=== PATIENT | female | born 1950 | race African-American/Black ===

== ENCOUNTER 2019-04-24 15:59 | Emergency (ER) | payer OTHER ==
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
--- NOTE | 2019-04-24 17:42 | RAD REPORT ---
EXAM DESCRIPTION: Tawanna Single View04/24/2019 5:28 pm CLINICAL HISTORY: Chest pain COMPARISON: 2017 FINDINGS: The lungs appear clear of acute infiltrate. The heart is mildly enlarged IMPRESSION: No acute abnormalities displayed
--- NOTE | 2019-04-24 17:45 | RAD REPORT ---
EXAM DESCRIPTION: RAD - Thoracic Spine Ap/Lat - 04/24/2019 5:28 pm CLINICAL HISTORY: Back pain FINDINGS: Mild kyphosis. Mild to moderate spondylosis Osteoporosis No fracture or dislocation. [id number] scoliosis
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
== END 2019-04-24 18:24 | disposition home or self-care (01) ==
LOC: ER 15:59
DX: S16.1XXA Strain of muscle, fascia and tendon at neck level, initial encounter (principal); M54.5 Low back pain; R07.89 Other chest pain; V43.52XA Car driver injured in collision with other type car in traffic accident, initial encounter; Y93.89 Activity, other specified; Y92.410 Unspecified street and highway as the place of occurrence of the external cause; Z88.2 Allergy status to sulfonamides; I10 Essential (primary) hypertension
CPT/HCPCS: 70450; 71045; 72070; 72125; 99284

== ENCOUNTER 2020-02-09 13:46 | Emergency (ER) | payer OTHER ==
[2020-02-09 14:51] LABS: Absolute Lymphocytes (CBC) 1.7 K/uL (0.7-4.9); Basophils % 1.6 % (0-1.3); Hematocrit 40.3 % (36.0-45.0); Lymphocytes % 30.1 % (15.3-44.8); MPV 8.2 fL (7.6-11.3); RBC Red Blood Cell Count 4.74 M/uL (3.86-4.86)
[2020-02-09 14:53] LABS: Protime INR 1.12
--- NOTE | 2020-02-09 15:03 | RAD REPORT ---
EXAM DESCRIPTION: Tawanna Single View02/09/2020 2:27 pm CLINICAL HISTORY: Chest pain COMPARISON: 2018 FINDINGS: The lungs appear clear of acute infiltrate. The heart is normal size IMPRESSION: No acute abnormalities displayed
[2020-02-09 15:04] LABS: ALT/SGPT 24 U/L (12-78); AST/SGOT 13 U/L (15-37); Albumin 3.8 g/dL (3.4-5.0); Alkaline Phosphatase 62 U/L (45-117); BUN Blood Urea Nitrogen 7 mg/dL (7-18); Bicarbonate 27 mmol/L (21-32); Bilirubin Direct < 0.1 mg/dL (0-0.2); Bilirubin Total 0.4 mg/dL (0.2-1.0); Glucose Level 101 mg/dL (74-106); Magnesium 2.5 mg/dL (1.8-2.4); NT PRO-BNP 24 pg/mL (<125); Potassium 4.1 mmol/L (3.5-5.1); Protein, Total 7.8 g/dL (6.4-8.2); Sodium Level 138 mmol/L (136-145); Troponin (Emerg Dept Use Only) < 0.02 ng/mL (0.0-0.045)
--- NOTE | 2020-02-09 15:32 | EDPHYS ---
Physician Documentation [facility] Name: Karol Samuels Age: 69 yrs Sex: Female : 1950 Arrival Date: 02/09/2020 Time: 13:51 Bed 6 Private MD: ED Physician Josue Gay HPI: 02/08 15:16 This 69 yrs old Black Female presents to ER via Wheelchair with complaints of Chest kdr Pain, Numbness Of Arm. 15:16 The patient or guardian reports chest pain that is located primarily in the anterior kdr chest wall, right. Onset: yesterday. The pain does not radiate. Associated signs and symptoms: The patient has no apparent associated signs or symptoms. The chest pain is described as sharp, "Notching" pain. Historical: - Allergies: 14:03 Sulfa (Sulfonamide Antibiotics); ll1 14:03 Lisinopril; ll1 - PMHx: 14:03 Hypertension; ll1 - PSHx: 14:03 Hysterectomy; shoulder sx; ll1 - Immunization history:: Flu vaccine is not up to date. - Social history:: Smoking status: Patient denies any tobacco usage or history of. Patient/guardian denies using alcohol, street drugs. ROS: 15:55 Constitutional: Negative for fever, chills, and weight loss, Eyes: Negative for injury, kdr pain, redness, and discharge, Neck: Negative for injury, pain, and swelling, Respiratory: Negative for shortness of breath, cough, wheezing, and pleuritic chest pain, Abdomen/GI: Negative for abdominal pain, nausea, vomiting, diarrhea, and constipation, Back: Negative for injury and pain, : Negative for injury, bleeding, discharge, and swelling, MS/Extremity: Negative for injury and deformity, Skin: Negative for injury, rash, and discoloration, Neuro: Negative for headache, weakness, numbness, tingling, and seizure activity. Psych: Negative for depression, anxiety, suicide ideation, homicidal ideation, and hallucinations, Allergy/Immunology: Negative for hives, rash, and allergies, Endocrine: Negative for neck swelling, polydipsia, polyuria, polyphagia, and marked weight changes, Hematologic/Lymphatic: Negative for swollen nodes, abnormal bleeding, and unusual bruising. 15:55 Cardiovascular: Positive for chest pain, of the right breast. Exam: 14:42 ECG was reviewed by the Attending Physician. kdr 15:55 Constitutional: This is a well developed, well nourished patient who is awake, alert, kdr and in no acute distress. Head/Face: Normocephalic, atraumatic. Eyes: Pupils equal round and reactive to light, extra-ocular motions intact. Lids and lashes normal. Conjunctiva and sclera are non-icteric and not injected. Cornea within normal limits. Periorbital areas with no swelling, redness, or edema. Neck: Trachea midline, no thyromegaly or masses palpated, and no cervical lymphadenopathy. Supple, full range of motion without nuchal rigidity, or vertebral point tenderness. No Meningismus. Chest/axilla: Normal chest wall appearance and motion. Nontender with no deformity. No lesions are appreciated. Cardiovascular: Regular rate and rhythm with a normal S1 and S2. No gallops, murmurs, or rubs. Normal PMI, no JVD. No pulse deficits. Respiratory: Lungs have equal breath sounds bilaterally, clear to auscultation and percussion. No rales, rhonchi or wheezes noted. No increased work of breathing, no retractions or nasal flaring. Abdomen/GI: Soft, non-tender, with normal bowel sounds. No distension or tympany. No guarding or rebound. No evidence of tenderness throughout. Back: No spinal tenderness. No costovertebral tenderness. Full range of motion. Skin: Warm, dry with normal turgor. Normal color with no rashes, no lesions, and no evidence of cellulitis. MS/ Extremity: Pulses equal, no cyanosis. Neurovascular intact. Full, normal range of motion. Neuro: Awake and alert, GCS 15, oriented to person, place, time, and situation. Cranial nerves II-XII grossly intact. Motor strength 5/5 in all extremities. Sensory grossly intact. Cerebellar exam normal. Normal gait. Psych: Awake, alert, with orientation to person, place and time. Behavior, mood, and affect are within normal limits. 15:55 Chest/axilla: Inspection: normal, Palpation: tenderness, that is mild, of the right breast. Vital Signs: 14:00 BP 151 / 85; Pulse 82; Resp 17; Temp 98.7; Pulse Ox 100% ; Pain 5/10; ll1 14:45 BP 137 / 69; Pulse 64; Resp 18; Pulse Ox 100% on R/A; Pain 5/10; em MDM: 15:31 Patient medically screened. kdr 15:55 Data reviewed: vital signs, nurses notes, lab test result(s), radiologic studies. kdr Counseling: I had a detailed discussion with the patient and/or guardian regarding: the historical points, exam findings, and any diagnostic results supporting the discharge/admit diagnosis, lab results, radiology results, the need for outpatient follow up. 02/08 13:51 Order name: Basic Metabolic Panel; Complete Time: 15:15 [facility] 02/08 13:51 Order name: CBC with Diff; Complete Time: 15:15 [facility] 02/08 13:51 Order name: LFT's; Complete Time: 15:15 [facility] 02/08 13:51 Order name: Magnesium; Complete Time: 15:15 [facility] 02/08 13:51 Order name: NT PRO-BNP; Complete Time: 15:15 [facility] 02/08 13:51 Order name: PT-INR; Complete Time: 15:15 [facility] 02/08 13:51 Order name: Troponin (emerg Dept Use Only); Complete Time: 15:15 [facility] 02/08 13:51 Order name: XRAY Chest (1 view); Complete Time: 15:15 [facility] 02/08 13:51 Order name: EKG; Complete Time: 13:52 [facility] 02/08 13:51 Order name: Cardiac monitoring; Complete Time: 14:37 [facility] 02/08 13:51 Order name: EKG - Nurse/Tech; Complete Time: 14:37 [facility] 02/08 13:51 Order name: IV Saline Lock; Complete Time: 14:37 [facility] 02/08 13:51 Order name: Labs collected and sent; Complete Time: 14:22 [facility] 02/08 13:51 Order name: O2 Per Protocol; Complete Time: 14:22 [facility] 02/08 13:51 Order name: O2 Sat Monitoring; Complete Time: 14:22 kdr EC:42 Rate is 71 beats/min. Rhythm is regular, Normal Sinus Rhythm with No ectopy. QRS [place] kdr is Normal. ME interval is normal. QRS interval is normal. QT interval is normal. No Q waves. Clinical impression: Normal ECG. Administered Medications: No medications were administered Disposition: 02/09/20 15:31 Discharged to Home. Impression: Other chest pain. - Condition is Fair. - Discharge Instructions: Nonspecific Chest Pain, Chest Wall Pain. - Prescriptions for Ibuprofen 600 mg Oral Tablet - take 1 tablet by ORAL route every 6 hours As needed take with food; 30 tablet. - Medication Reconciliation Form, Thank You Letter form. - Follow up: Private Physician; When: 2 - 3 days; Reason: If symptoms return, Further diagnostic work-up, Recheck today's complaints, Continuance of care, Re-evaluation by your physician. - Problem is new. - Symptoms have improved. Signatures: Dispatcher [employer] EDJosue Olmos MD MD kdr Kenn Saenz RN RN em Shayy Hughes RN RN ll1 Corrections: (The following items were deleted from the chart) 15:40 15:31 02/09/2020 15:31 Discharged to Home. Impression: Other chest pain. Condition is em Fair. Forms are Medication Reconciliation Form, Thank You Letter, Antibiotic Education, Prescription Opioid Use. Follow up: Private Physician; When: 2 - 3 days; Reason: If symptoms return, Further diagnostic work-up, Recheck today's complaints, Continuance of care, Re-evaluation by your physician. Problem is new. Symptoms have improved. kdr
--- NOTE | 2020-02-09 15:32 | ER ---
Nurse's Notes [facility] Name: Karol Samuels Age: 69 yrs Sex: Female : 1950 Arrival Date: 02/09/2020 Time: 13:51 Bed 6 Private MD: Diagnosis: Other chest pain Presentation: 02/08 14:00 Chief complaint: Patient states: Sharp intermittent CP since yesterday. R arm feels ll1 tingling. No SOB or cough. Has recovered from covid virus. Coronavirus screen: Client denies travel out of the [place] in the last 14 days. The client reports previous COVID testing was negative. Had covid Jan.20, has since [facility] patient. Ebola Screen: Patient denies travel to an Ebola-affected area in the 21 days before illness onset. Initial Sepsis Screen: Does the patient meet any 2 criteria? No. Patient's initial sepsis screen is negative. Risk Assessment: Do you want to hurt yourself or someone else? Patient reports no desire to harm self or others. Onset of symptoms was February 08, 2020. 14:00 Method Of Arrival: Wheelchair ll1 14:00 Acuity: SAIRA 3 ll1 Historical: - Allergies: 14:03 Sulfa (Sulfonamide Antibiotics); ll1 14:03 Lisinopril; ll1 - PMHx: 14:03 Hypertension; ll1 - PSHx: 14:03 Hysterectomy; shoulder sx; ll1 - Immunization history:: Flu vaccine is not up to date. - Social history:: Smoking status: Patient denies any tobacco usage or history of. Patient/guardian denies using alcohol, street drugs. Screenin:15 Abuse screen: Denies threats or abuse. Nutritional screening: No deficits noted. em Tuberculosis screening: No symptoms or risk factors identified. Fall Risk None identified. Assessment: 14:15 General: Appears in no apparent distress. comfortable, Behavior is calm, cooperative, em appropriate for age. Pain: Complains of pain in mid-sternal area Pain does not radiate. Pain began 1 day ago. Neuro: Level of Consciousness is awake, alert, obeys commands, Oriented to person, place, time, situation, Appropriate for age. Cardiovascular: Capillary refill < 3 seconds Patient's skin is warm and dry. Rhythm is sinus rhythm. Respiratory: Airway is patent Respiratory effort is even, unlabored, Respiratory pattern is regular, symmetrical, Denies cough, pain with respiration. GI: Abdomen is flat, Patient currently denies nausea, vomiting. Derm: Skin is intact, is fragile, is thin, Skin is pink, warm \T\ dry. Musculoskeletal: Capillary refill < 3 seconds, Range of motion: intact in all extremities. 15:30 Reassessment: Patient appears in no apparent distress at this time. Patient and/or em family updated on plan of care and expected duration. Pain level reassessed. Patient is alert, oriented x 3, equal unlabored respirations, skin warm/dry/pink. Vital Signs: 14:00 BP 151 / 85; Pulse 82; Resp 17; Temp 98.7; Pulse Ox 100% ; Pain 5/10; ll1 14:45 BP 137 / 69; Pulse 64; Resp 18; Pulse Ox 100% on R/A; Pain 5/10; em ED Course: 13:51 Patient arrived in ED. mr 13:51 Josue Gay MD is Attending Physician. kdr 14:02 Triage completed. ll1 14:03 Arm band placed on Patient placed in an exam room, on a stretcher. ll1 14:15 Patient has correct armband on for positive identification. Placed in gown. Bed in low em position. Call light in reach. Side rails up X2. 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 Pulse ox on. NIBP on. 14:19 EKG done, by ED staff, reviewed by Josue Gay MD. em 14:22 Kenn Saenz, RN is Primary Nurse. em 14:27 XRAY Chest (1 view) In Process Unspecified. EDMS 14:30 Initial lab(s) drawn, by ct, sent to lab. Inserted saline lock: 20 gauge in right em antecubital area, using aseptic technique. Blood collected. 14:30 Patient maintains SpO2 saturation greater than 95% on room air. em 15:39 No provider procedures requiring assistance completed. IV discontinued, intact, em bleeding controlled, No redness/swelling at site. Pressure dressing applied. Administered Medications: No medications were administered Outcome: 15:31 Discharge ordered by . kdr 15:39 Discharged to home ambulatory. em 15:39 Condition: good 15:39 Discharge instructions given to patient, Instructed on discharge instructions, follow up and referral plans. medication usage, Demonstrated understanding of instructions, follow-up care, medications, Prescriptions given X 1. 15:40 Patient left the ED. em Signatures: Dispatcher [employer] EDJosue Olmos MD MD kdr Rivera Temi Kenn Winkler RN RN em Shayy Hughes RN RN ll1
--- NOTE | 2020-02-10 10:46 | EKG ---
Test Date: 2020-02-09 Test Time: 14:19:28 Locomotive Operator: JAIRON MEASUREMENT RESULTS: Intervals: Rate: 71 GA: 134 QRSD: 90 QT: 384 QTc: 417 Mccarley: P: 63 GA: 134 QRS: 74 T: 51 INTERPRETIVE STATEMENTS: Normal sinus rhythm Normal ECG Compared to ECG 07/06/2016 01:18:25 Sinus bradycardia no longer present T-wave abnormality no longer present Electronically Signed On 02-10-20 10:43:35 CDT by Fran Simpson
[2020-02-14 01:01] VITALS: TEMP 98.7; O2SAT 100
[2020-02-14 01:02] VITALS: BP 137/69
== END 2020-02-09 15:40 | disposition home or self-care (01) ==
LOC: ER 13:46
DX: R07.89 Other chest pain (principal); I10 Essential (primary) hypertension; Z88.2 Allergy status to sulfonamides; Z88.8 Allergy status to other drugs, medicaments and biological substances
CPT/HCPCS: 36415; 71045; 80048; 80076; 83735; 83880; 84484; 85025; 85610; 93005; 99285

== ENCOUNTER 2020-04-18 21:48 | Emergency (ER) | payer OTHER, SELFPAY ==
--- OUTSIDE RECORDS SUMMARY | 2020-04-18 21:50 | XMS REPORT ---
:1950 Author Organization [facility] Address [address], [place] [place] [address] Care Team Providers Name Role Phone Jay Unavailable [phone] PROBLEMS Type Condition ICD9-CM UHH86-SS Onset Condition SNOMED Code Notes Code Code Dates Status Problem Essential I10 Active 05232432 hypertension Problem Allergic J30.9 Active 84450511 rhinitis, unspecified seasonality, unspecified trigger Problem Obesity (BMI E66.9 Active [id number] 30.0-34.9) Problem Otalgia, H92.03 Active 206686843 bilateral Problem Low TSH level R79.89 Active 843119075 Problem Dizziness R42 Active 813496515 With lighthe adednes s. Problem History of asthma Z87.09 Active 385710346 Problem Seasonal allergic J30.2 Active 654822863 rhinitis Problem Hypomagnesemia E83.42 Active 049656727 Problem Prediabetes R73.03 Active 261711162 ALLERGIES Allergen (clinical Drug/Non Drug Reaction Allergy Type Onset Date S tatus drug ingredient) Allergy documented on EMR Sulfa rash Non Drug Allergy Active ENCOUNTERS from 1950 to 2020-03-17 Encounter Location Date Provider Diagnosis [facility] [address] [facility] [place] Feb, Socodiana Thompson Dizzin ess R42 ; [address] [place], Prediabete s R73.03 ; [place] [address] Otalgia, bilat eral H92.03 ; Allerg ic rhinitis, unspecified seasonality, unspecified tri gger J30.9 and Essen tial hypertension I1 0 IMMUNIZATIONS No Information SOCIAL HISTORY Tobacco Use: Social History Observation Description Date Details (start date - stop date) Never Smoker Sex Assigned At : Social History Observation Description Sex Assigned At Unknown Alcohol Screen Question Answer Notes Did you have a drink containing alcohol in the past year? No Points 0 Interpretation Negative Tobacco Use/Smoking Question Answer Notes Are you a never smoker REASON FOR REFERRAL No Information VITAL SIGNS Height 64 in Feb, Weight 167 lbs Feb, Temperature 98.2 degrees Fahrenheit Feb, BMI 28.66 kg/m2 Feb, Oximetry 97 % Feb, Respiratory Rate 16 /min Feb, Blood pressure systolic 138 mm Hg Feb, Blood pressure diastolic 83 mm Hg Feb, MEDICATIONS Medication SIG (Take, Route, Frequency, Start Date End Date Status Duration) Amlodipine Besylate 10 MG 1 tablet Orally Once daily Active for 90 days Vitamin D3 125 MCG (5000 UT) as directed Orally Active Vitamin B12 100 MCG as directed Orally Ac tive Vitamin C 250 MG 1 tablet Orally Once a day Active PROCEDURES No Information RESULTS Component Value Reference Range HEMOGLOBIN A1C Reviewed date:03/16/2020 21:59:52 Interpretation: Performing Lab: A1C 5.9% REASON FOR VISIT Feeling slightly lightheaded; #[phone] MEDICAL (GENERAL) HISTORY Type Description Date Medical History Essential hypertension Medical History Seasonal allergic rhinitis Medical History History of asthma Surgical History tubal ligation Surgical History Hysterectomy Surgical History surgery on back Goals Section No Information Health Concerns No Information MEDICAL EQUIPMENT No Information MENTAL STATUS No Information FUNCTIONAL STATUS No Information ASSESSMENTS Encounter Date Diagnosis Notes Feb, Allergic rhinitis, unspecified seasonali ty, unspecified trigger (ICD-10 - J30.9) Feb, Otalgia, bilateral (ICD-10 - H92.03) Feb, Essential hypertension (ICD-10 - I10) Feb, Prediabetes (ICD-10 - R73.03) Feb, Dizziness (ICD-10 - R42) With lightheade dness. PLAN OF TREATMENT Medication Medication Name Sig Start Date Stop Date Amlodipine Besylate 10 MG 1 tablet Orally Once daily for 90 days Treatment Notes Assessment Notes Clinical Notes Dizziness Aware; will monitor Prediabetes Watch intake of sweets/excess starches Otalgia, bilateral Aware; Tylenol OTC as directed prn pain Allergic rhinitis, unspecified Continue Flonase Nasal [place] once seasonality, unspecified trigger daily + be consistent with Nasal Saline [place] 2-4x per day Essential hypertension Tolerating Amlodipine at increased dose of 10 mg once daily; taking increased dose as of 02/04/2020; refill at 10 mg as listed above. Nurse to do orthostatic BPs on patient before discharge - results as listed above under "Vital Signs". Instructed to bring BP log sheets to her next visit; no additional BP log sheets needed Next Appt Details Keep appt. on 04/28/2020 as already sche duled; as well as f/u prn. Reason: Provider Name:Soco Thompson, 2020-04-18 1 01:20:00 PM, [address], [address], [place], [address], Provider Name:Soco Thompson, 2020-08-17 2 08:00:00 AM, [address], [address], [place], [address], Provider Name:Soco Thompson 2020-08-17 9 09:40:00 AM, [address], [address], [place], [address], Insurance Providers Payer Name Payer Payer Insured Patient Coverage Coverage Address Phone Name Relationship to Start Date End Date Insured [employer] [id number] [facility] [id number]
[2020-04-18 22:31] LABS: Urine Blood NEGATIVE (NEG); Urine Glucose NEGATIVE (NEG); Urine Protein NEGATIVE (NEG); Urine Specific Gravity <1.005 (1.005-1.030); Urine pH 6.5 (5.0-7.0)
[2020-04-18 22:33] LABS: Absolute Lymphocytes (CBC) 2.8 K/uL (0.7-4.9); Basophils % 1.2 % (0-1.3); Lymphocytes % 34.1 % (15.3-44.8); MPV 8.2 fL (7.6-11.3); RBC Red Blood Cell Count 4.68 M/uL (3.86-4.86)
[2020-04-18 22:37] LABS: Protime INR 1.11
[2020-04-18 22:59] LABS: ALT/SGPT 18 U/L (12-78); AST/SGOT 15 U/L (15-37); Albumin 3.9 g/dL (3.4-5.0); Alkaline Phosphatase 69 U/L (45-117); BUN Blood Urea Nitrogen 7 mg/dL (7-18); Bicarbonate 28 mmol/L (21-32); Bilirubin Direct 0.3 mg/dL (0-0.2); Bilirubin Total 0.4 mg/dL (0.2-1.0); Glucose Level 95 mg/dL (74-106); Magnesium 2.4 mg/dL (1.8-2.4); NT PRO-BNP 32 pg/mL (<125); Potassium 3.6 mmol/L (3.5-5.1); Sodium Level 139 mmol/L (136-145); Thyroid Stimulating Hormone 0.461 uIU/mL (0.360-3.740); Troponin (Emerg Dept Use Only) < 0.02 ng/mL (0.0-0.045)
--- NOTE | 2020-04-19 00:10 | EDPHYS ---
Physician Documentation [facility] Name: Karol Samuels Age: 69 yrs Sex: Female : 1950 Arrival Date: 04/18/2020 Time: 21:48 Bed 5 Private MD: Soco Thompson ED Physician Chetan Knox HPI: 04/18 22:38 This 69 yrs old Black Female presents to ER via Ambulatory with complaints of High mh7 Blood Pressure, racing heart. 22:38 The patient presents with a history of heart racing. Context: The symptoms occur at mh7 rest. Onset: The symptoms/episode began/occurred today. Duration: The patient or guardian reports a single episode, that is now resolved. Modifying factors: The symptoms are aggravated by nothing. The symptoms are alleviated by nothing. 22:39 Associated signs and symptoms: Pertinent negatives: anxiety, chest pain, cough, fever, mh7 lightheadedness, nausea, SOB, syncope, near-syncope, unusual stressors, vertigo, vomiting. Severity of symptoms: At their worst the symptoms were moderate today, in the emergency department the symptoms have resolved and did so while in waiting room. Historical: - Allergies: 22:03 Sulfa (Sulfonamide Antibiotics); jd3 - Home Meds: 22:03 amlodipine oral [Active]; jd3 - PMHx: 22:03 Hypertension; jd3 - PSHx: 22:03 Hysterectomy; shoulder sx; jd3 - Immunization history:: Adult Immunizations up to date. - Social history:: Smoking status: Patient denies any tobacco usage or history of. ROS: 22:39 Constitutional: Negative for fever, chills, and weight loss, Eyes: Negative for injury, mh7 pain, redness, and discharge, ENT: Negative for injury, pain, and discharge, Neck: Negative for injury, pain, and swelling, Respiratory: Negative for shortness of breath, cough, wheezing, and pleuritic chest pain, Abdomen/GI: Negative for abdominal pain, nausea, vomiting, diarrhea, and constipation, Back: Negative for injury and pain, : Negative for injury, bleeding, discharge, and swelling, MS/Extremity: Negative for injury and deformity, Skin: Negative for injury, rash, and discoloration, Neuro: Negative for headache, weakness, numbness, tingling, and seizure, Psych: Negative for depression, anxiety, suicide ideation, homicidal ideation, and hallucinations, Allergy/Immunology: Negative for hives, rash, and allergies, Endocrine: Negative for neck swelling, polydipsia, polyuria, polyphagia, and marked weight changes, Hematologic/Lymphatic: Negative for swollen nodes, abnormal bleeding, and unusual bruising. Exam: 22:39 Constitutional: This is a well developed, well nourished patient who is awake, alert, mh7 and in no acute distress. Head/Face: Normocephalic, atraumatic. Eyes: Pupils equal round and reactive to light, extra-ocular motions intact. Lids and lashes normal. Conjunctiva and sclera are non-icteric and not injected. Cornea within normal limits. Periorbital areas with no swelling, redness, or edema. Neck: Trachea midline, no thyromegaly or masses palpated, and no cervical lymphadenopathy. Supple, full range of motion without nuchal rigidity, or vertebral point tenderness. No Meningismus. Chest/axilla: Normal chest wall appearance and motion. Nontender with no deformity. No lesions are appreciated. Cardiovascular: Regular rate and rhythm with a normal S1 and S2. No gallops, murmurs, or rubs. Normal PMI, no JVD. No pulse deficits. Respiratory: Lungs have equal breath sounds bilaterally, clear to auscultation and percussion. No rales, rhonchi or wheezes noted. No increased work of breathing, no retractions or nasal flaring. Abdomen/GI: Soft, non-tender, with normal bowel sounds. No distension or tympany. No guarding or rebound. No evidence of tenderness throughout. Back: No spinal tenderness. No costovertebral tenderness. Full range of motion. Skin: Warm, dry with normal turgor. Normal color with no rashes, no lesions, and no evidence of cellulitis. MS/ Extremity: Pulses equal, no cyanosis. Neurovascular intact. Full, normal range of motion. Neuro: Awake and alert, GCS 15, oriented to person, place, time, and situation. Cranial nerves II-XII grossly intact. Motor strength 5/5 in all extremities. Sensory grossly intact. Cerebellar exam normal. Normal gait. Psych: Awake, alert, with orientation to person, place and time. Behavior, mood, and affect are within normal limits. Vital Signs: 22:03 BP 154 / 84; Pulse 70; Resp 16 S; Temp 98.3(O); Pulse Ox 100% on R/A; Weight 71.21 kg jd3 (R); Height 5 ft. 6 in. (167.64 cm) (R); Pain 0/10; 22:30 BP 140 / 74; Pulse 62; Resp 18; Pulse Ox 99% ; ea 23:41 BP 135 / 72; Pulse 60; Resp 20; Pulse Ox 100% on R/A; ll2 22:03 Body Mass Index 25.34 (71.21 kg, 167.64 cm) jd3 MDM: 22:16 Patient medically screened. [facility] 04/19 00:06 Differential diagnosis: arrythmia, dehydration, stress disorder, Palpitations. Data [facility] reviewed: vital signs, nurses notes, lab test result(s), cardiac enzymes, CBC, electrolytes, urinalysis, EKG, radiologic studies, plain films. Data interpreted: Pulse oximetry: on room air is 100 %. Interpretation: normal. Counseling: I had a detailed discussion with the patient and/or guardian regarding: the historical points, exam findings, and any diagnostic results supporting the discharge/admit diagnosis, lab results, radiology results, the need for outpatient follow up, to return to the emergency department if symptoms worsen or persist or if there are any questions or concerns that arise at home. Response to treatment: the patient's symptoms have resolved after treatment, the patient's blood pressure is in an acceptable range, mental status has returned to baseline, the patient no longer shows bradycardia, the patient is not short of breath, the patient is not tachycardic, the patient's pain is gone, the patient's temperature has normalized, the patient is now symptom free, patient is well hydrated. 04/18 22:16 Order name: Basic Metabolic Panel; Complete Time: 23:13 [facility] 04/18 22:16 Order name: CBC with Diff; Complete Time: 23:13 [facility] 04/18 22:16 Order name: LFT's; Complete Time: 23:13 [facility] 04/18 22:16 Order name: Magnesium; Complete Time: 23:13 [facility] 04/18 22:16 Order name: NT PRO-BNP; Complete Time: 23:13 [facility] 04/18 22:16 Order name: PT-INR; Complete Time: 23:13 7 04/18 22:16 Order name: Troponin (emerg Dept Use Only); Complete Time: 23:13 [facility] 04/18 22:16 Order name: XRAY Chest (1 view) [facility] 04/18 22:16 Order name: EKG; Complete Time: 22:17 7 04/18 22:16 Order name: Cardiac monitoring; Complete Time: 22:20 [facility] 04/18 22:16 Order name: EKG - Nurse/Tech; Complete Time: 22:20 [facility] 04/18 22:16 Order name: TSH; Complete Time: 23:13 7 04/18 22:28 Order name: Urine Dipstick--Ancillary (enter results); Complete Time: 23:13 [facility] 04/18 23:16 Order name: D-Dimer; Complete Time: 00:01 [facility] 04/18 22:16 Order name: IV Saline Lock; Complete Time: 22:20 [facility] 04/18 22:16 Order name: Labs collected and sent; Complete Time: 22:20 [facility] 04/18 22:16 Order name: O2 Per Protocol; Complete Time: 22:20 [facility] 04/18 22:16 Order name: O2 Sat Monitoring; Complete Time: 22:20 [facility] 04/18 22:16 Order name: Urine Dipstick-Ancillary (obtain specimen); Complete Time: 22:19 mh7 Administered Medications: No medications were administered Disposition: 04/19/20 00:09 Discharged to Home. Impression: Palpitations, Hypertension. - Condition is Stable. - Discharge Instructions: Hypertension, [id number], Palpitations, [id number]-[id number]. - Medication Reconciliation Form, Thank You Letter, Antibiotic Education, Prescription Opioid Use form. - Follow up: Private Physician; When: 1 - 2 days; Reason: Worsening of condition, Recheck today's complaints, Continuance of care, Re-evaluation by your physician. - Problem is new. - Symptoms are resolved. Signatures: Dispatcher [employer] Zhao Brito RN RN jd3 Unique Ford RN RN ll2 Chetan Knox MD MD 7 Corrections: (The following items were deleted from the chart) 00:25 00:09 04/19/2020 00:09 Discharged to Home. Impression: Palpitations; Hypertension. ll2 Condition is Stable. Forms are Medication Reconciliation Form, Thank You Letter, Antibiotic Education, Prescription Opioid Use. Follow up: Private Physician; When: 1 - 2 days; Reason: Worsening of condition, Recheck today's complaints, Continuance of care, Re-evaluation by your physician. Problem is new. Symptoms are resolved. mh7
--- NOTE | 2020-04-19 00:10 | ER ---
Nurse's Notes [facility] Name: Karol Samuels Age: 69 yrs Sex: Female : 1950 Arrival Date: 04/18/2020 Time: 21:48 Bed 5 Private MD: Soco Thompson Diagnosis: Palpitations;Hypertension Presentation: 04/18 22:00 Chief complaint: Patient states: "I felt my heart racing at home. It is a little better jd3 now, but I am still having higher blood pressure and just uncomfortable.". Coronavirus screen: At this time, the client does not indicate any symptoms associated with coronavirus-19. Ebola Screen: Patient negative for fever greater than or equal to 101.5 degrees Fahrenheit, and additional compatible Ebola Virus Disease symptoms. Initial Sepsis Screen: Does the patient meet any 2 criteria? No. Patient's initial sepsis screen is negative. Does the patient have a suspected source of infection? No. Patient's initial sepsis screen is negative. Risk Assessment: Do you want to hurt yourself or someone else? Patient reports no desire to harm self or others. Onset of symptoms was April 18, 2020. 22:00 Method Of Arrival: Ambulatory jd3 22:00 Acuity: SAIRA 3 jd3 Historical: - Allergies: 22:03 Sulfa (Sulfonamide Antibiotics); jd3 - Home Meds: 22:03 amlodipine oral [Active]; jd3 - PMHx: 22:03 Hypertension; jd3 - PSHx: 22:03 Hysterectomy; shoulder sx; jd3 - Immunization history:: Adult Immunizations up to date. - Social history:: Smoking status: Patient denies any tobacco usage or history of. Screenin:05 Abuse screen: Denies threats or abuse. Nutritional screening: No deficits noted. ll2 Tuberculosis screening: No symptoms or risk factors identified. Fall Risk None identified. Assessment: 22:04 General: Appears in no apparent distress. Behavior is calm, cooperative, appropriate ll2 for age. Pain: Denies pain. Neuro: Level of Consciousness is awake, alert, obeys commands, Oriented to person, place, time, situation. Cardiovascular: Capillary refill < 3 seconds Patient's skin is warm and dry. Respiratory: Airway is patent Respiratory effort is even, unlabored, Respiratory pattern is regular, symmetrical. GI: No signs and/or symptoms were reported involving the gastrointestinal system. : No signs and/or symptoms were reported regarding the genitourinary system. EENT: No signs and/or symptoms were reported regarding the EENT system. Derm: Skin is intact, is healthy with good turgor, Skin is dry, Skin is pink, warm \\T\\ dry. Skin temperature is warm. Musculoskeletal: Circulation, motion, and sensation intact. Range of motion: intact in all extremities. 22:15 Reassessment: Patient and/or family updated on plan of care and expected duration. Pain ll2 level reassessed. Patient is alert, oriented x 3, equal unlabored respirations, skin warm/dry/pink. 23:40 Reassessment: Patient and/or family updated on plan of care and expected duration. Pain ll2 level reassessed. Patient is alert, oriented x 3, equal unlabored respirations, skin warm/dry/pink. 04/19 00:08 Reassessment: Patient and/or family updated on plan of care and expected duration. Pain ll2 level reassessed. Patient is alert, oriented x 3, equal unlabored respirations, skin warm/dry/pink. Vital Signs: 04/18 22:03 BP 154 / 84; Pulse 70; Resp 16 S; Temp 98.3(O); Pulse Ox 100% on R/A; Weight 71.21 kg jd3 (R); Height 5 ft. 6 in. (167.64 cm) (R); Pain 0/10; 22:30 BP 140 / 74; Pulse 62; Resp 18; Pulse Ox 99% ; ea 23:41 BP 135 / 72; Pulse 60; Resp 20; Pulse Ox 100% on R/A; ll2 22:03 Body Mass Index 25.34 (71.21 kg, 167.64 cm) jd3 ED Course: 21:48 Patient arrived in ED. am2 21:48 Soco Thompson MD is Private Physician. am2 21:53 Chetan Knox MD is Attending Physician. mh7 21:54 Unique Ford, BEBA is Primary Nurse. ll2 22:01 Triage completed. jd3 22:04 Arm band placed on. EKG completed in triage. Results shown to MD. jd3 22:05 Patient has correct armband on for positive identification. Call light in reach. Side ll2 rails up X 1. telemetry monitor on. Pulse ox on. NIBP on. 22:05 EKG done, by ED staff, reviewed by Chetan Knox MD. ll2 22:08 Inserted saline lock: 20 gauge in right antecubital area, using aseptic technique. ds4 Blood collected. 22:46 XRAY Chest (1 view) In Process Unspecified. EDMS 04/19 00:25 No provider procedures requiring assistance completed. IV discontinued, intact, ll2 bleeding controlled, No redness/swelling at site. Pressure dressing applied. Administered Medications: No medications were administered Outcome: 00:09 Discharge ordered by . 7 00:24 Discharged to home ambulatory. ll2 00:24 Condition: stable 00:24 Discharge instructions given to patient, Instructed on discharge instructions, follow up and referral plans. 00:25 Patient left the ED. 2 Signatures: Dispatcher [employer] EDMI Francis Reyes ds4 Sheron Pastor am2 Soo Ramirez, RN Zhao Abraham ea, RN RN jd3 [place]inscombe, Lacie, RN RN 2 Chetan Knox MD MD mh7
[2020-04-19 00:42] VITALS: TEMP 98.3
[2020-04-19 00:46] VITALS: BP 135/72; O2SAT 100
--- NOTE | 2020-04-19 08:52 | RAD REPORT ---
EXAM DESCRIPTION: RAD - Chest Single View - 04/18/2020 10:46 pm CLINICAL HISTORY: PALPITATIONS Chest pain. COMPARISON: Chest Single View dated 02/09/2020; Chest Single View dated 04/24/2019; Chest Single View dated 07/06/2016; Chest Single View dated 04/03/2016 FINDINGS: Portable technique limits examination quality. The lungs are grossly clear. The heart is normal in size. No displaced fractures. IMPRESSION: No acute intrathoracic process suspected.
== END 2020-04-19 00:25 | disposition home or self-care (01) ==
LOC: ER 21:48
DX: I10 Essential (primary) hypertension (principal); Z88.2 Allergy status to sulfonamides
CPT/HCPCS: 36415; 71045; 80048; 80076; 81003; 83735; 83880; 84443; 84484; 85025; 85379; 85610; 93005; 99284

== ENCOUNTER 2022-05-05 10:26 | Emergency (ER) | payer MEDICARE ==
[2022-05-05 12:06] LABS: Absolute Lymphocytes (CBC) 2.2 K/uL (0.7-4.9); Lymphocytes % 31.6 % (15.3-44.8); MCV 85.2 fL (80-100); MPV 8.1 fL (7.6-11.3); RBC Red Blood Cell Count 4.93 M/uL (3.86-4.86)
[2022-05-05] MEDS ORDERED: FLUORESCEIN SODIUM 1 MG/WRAP ONE (12:23)
[2022-05-05] MEDS ORDERED: TETRACAINE HCL 0.5% 4ML OPTH ONE (12:23)
[2022-05-05 12:33] LABS: Potassium 4.5 mmol/L (3.5-5.1)
--- NOTE | 2022-05-05 13:27 | RAD REPORT ---
EXAM DESCRIPTION: CT - CTFBWCON CLINICAL HISTORY: right orbital swelling COMPARISON: Sinus Wo Cont dated 02/13/2019 TECHNIQUE: Axial 2 mm thick images of the face were obtained with sagittal and coronal reconstructio n images. All CT scans are performed using dose optimization technique as appropriate and may include automated exposure control or mA/KV adjustment according to patient size. FINDINGS: No acute facial bone fracture is seen.The mandible is intact. The globes and orbital contents are grossly unremarkable.Right maxillary sinus mucous retention cyst Preseptal edema at the right orbit. IMPRESSION: Preseptal edema at the right orbit. No postseptal abnormality identified.
--- NOTE | 2022-05-05 14:17 | EDPHYS ---
Physician Documentation [facility] Name: Karol Samuels Age: 71 yrs Sex: Female : 1950 Arrival Date: 05/05/2022 Time: 10:28 Bed 9 Private MD: Barrett Romero ED Physician Benny Leo HPI: 05/05 13:49 This 71 yrs old Black Female presents to ER via Ambulatory with complaints of Eye jmm Swelling. 13:49 Onset: The symptoms/episode began/occurred gradually, 2 week(s) ago. Duration: the jmm symptoms are continuous. Aggravated by nothing. Alleviated by nothing. This is a 71 . 14:25 This is a 71-year-old female with history of hypertension the [facility] with complaints of right eye swelling bleeding approximately 2 weeks ago worsening over the past 2 days. Denies fever or chills.. Historical: - Allergies: 11:21 Sulfa (Sulfonamide Antibiotics); vg1 - PMHx: 11:21 Hypertension; vg1 - Immunization history:: Client reports having NOT received the Covid vaccine. - Social history:: Smoking status: Patient denies any tobacco usage or history of. ROS: 14:25 Constitutional: Negative for fever, chills, and weight loss. jmm 14:25 Neck: Negative for injury, pain, and swelling, Cardiovascular: Negative for chest pain, palpitations, and edema, Respiratory: Negative for shortness of breath, cough, wheezing, and pleuritic chest pain, Abdomen/GI: Negative for abdominal pain, nausea, vomiting, diarrhea, and constipation, Back: Negative for injury and pain, : Negative for injury, bleeding, discharge, and swelling, MS/Extremity: Negative for injury and deformity, Skin: Negative for injury, rash, and discoloration, Neuro: Negative for headache, weakness, numbness, tingling, and seizure, Psych: Negative for depression, anxiety, suicide ideation, homicidal ideation, and hallucinations. 14:25 Eyes: Positive for pain, swelling. 14:25 All other systems are negative. Exam: 14:25 Constitutional: This is a well developed, well nourished patient who is awake, alert, jmm and in no acute distress. Head/Face: atraumatic. 14:25 Neck: Trachea midline, Supple Chest/axilla: Normal chest wall appearance and motion. Cardiovascular: Regular rate and rhythm. No edema appreciated Respiratory: Normal respirations, no respiratory distress appreciated Abdomen/GI: Non distended Back: Normal ROM Skin: General appearance color normal MS/ Extremity: Moves all extremities, no obvious deformities appreciated, no edema noted to the lower extremities Neuro: Awake and alert Psych: Behavior is normal, Mood is normal, Patient is cooperative and pleasant 14:25 Eyes: Extraocular movements: intact throughout, Conjunctiva: injected, in the right eye, Right lower lid edematous, nontender to palpation. 14:27 Eyes: Corneas: abrasion, is not appreciated, a fluorescein strip employed to appreciate [facility] the findings. Vital Signs: 11:20 BP 145 / 77; Pulse 65; Resp 15; Temp 98.4(O); Pulse Ox 99% on R/A; Weight 81.65 kg; vg1 Height 5 ft. 5 in. (165.10 cm); Pain 9/10; 11:20 Body Mass Index 29.95 (81.65 kg, 165.10 cm) vg1 MDM: 11:26 Patient medically screened. [facility] 14:15 Data reviewed: vital signs, nurses notes. Counseling: I had a detailed discussion with [facility] the patient and/or guardian regarding: the historical points, exam findings, and any diagnostic results supporting the discharge/admit diagnosis, the need for outpatient follow up, to return to the emergency department if symptoms worsen or persist or if there are any questions or concerns that arise at home. 05/05 11:36 Order name: CBC with Diff; Complete Time: 12:13 [facility] 05/05 11:36 Order name: BMP; Complete Time: 12:38 [facility] 05/05 11:33 Order name: Eye Tray; Complete Time: 12:47 [facility] 05/05 11:33 Order name: Fluoresene Opth strip; Complete Time: 12:47 [facility] 05/05 11:36 Order name: CT Facial Bones W/ Con \T\ Mpr; Complete Time: 13:29 [facility] 05/05 11:36 Order name: Saline Lock; Complete Time: 11:58 [facility] Administered Medications: 14:17 Drug: Tetracaine Drops 0.5 % 1 drops {Note: by pastora.} Route: Ophthalmic; Site: right ap3 eye; Disposition Summary: 05/05/22 14:16 Discharge Ordered Location: [facility] Condition: Stable jm Diagnosis - Other acute conjunctivitis [facility] - Right Preseptal Celluitis [facility]up: [facility] - With: Boni Lopez MD - When: 2 - 3 days - Reason: Recheck today's complaints, Continuance of care, Re-evaluation by your physician Discharge Instructions: - Discharge Summary Sheet jm - Preseptal Cellulitis, Adult jm Forms: - Medication Reconciliation Form [facility] - Thank You Letter [facility] - Antibiotic Education [facility] - Prescription Opioid Use [facility] Prescriptions: - cefdinir 300 mg Oral capsule - take 1 capsule by ORAL route every 12 hours for 10 days; 20 capsule; Refills: jmm 0, Product Selection Permitted - Erythromycin 5 mg/gram (0.5 %) Ophthalmic Ointment - apply 1 centimeter by OPHTHALMIC route 2-3 times daily for 7 days; 1 tube; jmm Refills: 0, Product Selection Permitted Addendum: 05/07/2022 13:32 Co-signature as Attending Physician, Benny Leo MD I agree with the assessment and c rashid plan of care. Signatures: Dispatcher [employer] Benny Lopez MD MD cha Mickail, Joel, PA PA jmm Prokisch, Amanda, RN RN ap3 Ashley Boggs RN RN vg1
--- NOTE | 2022-05-05 14:17 | ER ---
Nurse's Notes [facility] Name: Karol Samuels Age: 71 yrs Sex: Female : 1950 Arrival Date: 05/05/2022 Time: 10:28 Bed 9 Private MD: Barrett Romero Diagnosis: Other acute conjunctivitis;Right Preseptal Celluitis Presentation: 05/05 11:20 Chief complaint: Patient states: Right eye swelling x 2 weeks with blurred vision. vg1 Denies d/c. Coronavirus screen: Vaccine status: Patient reports being unvaccinated. Client denies travel out of the [place] in the last 14 days. Ebola Screen: Patient negative for fever greater than or equal to 101.5 degrees Fahrenheit, and additional compatible Ebola Virus Disease symptoms. Initial Sepsis Screen: Does the patient meet any 2 criteria? No. Patient's initial sepsis screen is negative. Does the patient have a suspected source of infection? No. Patient's initial sepsis screen is negative. Risk Assessment: Do you want to hurt yourself or someone else? Patient reports no desire to harm self or others. Onset of symptoms was April 21, 2022. 11:20 Method Of Arrival: Ambulatory vg1 11:20 Acuity: SAIRA 4 vg1 Triage Assessment: 11:20 General: Appears uncomfortable, Behavior is calm, cooperative. Pain: Complains of pain vg1 in right eye Pain currently is 9 out of 10 on a pain scale. EENT: Eyes swelling to Right eye. Reports blurred vision. Historical: - Allergies: 11:21 Sulfa (Sulfonamide Antibiotics); vg1 - PMHx: 11:21 Hypertension; vg1 - Immunization history:: Client reports having NOT received the Covid vaccine. - Social history:: Smoking status: Patient denies any tobacco usage or history of. Screenin:26 Abuse screen: Denies threats or abuse. Nutritional screening: No deficits noted. ap3 Tuberculosis screening: No symptoms or risk factors identified. Fall Risk None identified. Vital Signs: 11:20 BP 145 / 77; Pulse 65; Resp 15; Temp 98.4(O); Pulse Ox 99% on R/A; Weight 81.65 kg; vg1 Height 5 ft. 5 in. (165.10 cm); Pain 9/10; 11:20 Body Mass Index 29.95 (81.65 kg, 165.10 cm) vg1 ED Course: 10:28 Patient arrived in ED. mr 10:28 Barrett Romero MD is Private Physician. mr 11:20 Arm band placed on. vg1 11:21 Triage completed. vg1 11:23 Pastora Merritt PA is PHCP. [facility] 11:23 Benny Leo MD is Attending Physician. [facility] 11:58 Initial lab(s) drawn, by [facility], sent to lab. Inserted saline lock: 20 gauge in right jw7 antecubital area, using aseptic technique. Blood collected. 11:58 CBC with Diff Sent. jw7 11:58 BMP Sent. jw7 12:21 Sheron Velez, BEBA is Primary Nurse. ap3 13:02 CT Facial Bones W/ Con \T\ Mpr In Process Unspecified. EDMS 14:15 Boni Lopez MD is Referral Physician. [facility] 14:26 Patient has correct armband on for positive identification. ap3 14:26 No provider procedures requiring assistance completed. IV discontinued, intact, ap3 bleeding controlled, No redness/swelling at site. Pressure dressing applied. Administered Medications: 14:17 Drug: Tetracaine Drops 0.5 % 1 drops {Note: by pastora.} Route: Ophthalmic; Site: right ap3 eye; Medication: 14:26 VIS not applicable for this client. ap3 Outcome: 14:16 Discharge ordered by . [facility] 14:26 Discharged to home ambulatory. ap3 14:26 Condition: good 14:26 Discharge instructions given to patient, Instructed on discharge instructions, follow up and referral plans. Demonstrated understanding of instructions, follow-up care, medications, Prescriptions given X 2. 14:26 Patient left the ED. ap3 Signatures: Dispatcher [employer] EDMS Pastora Merritt PA PA jmm Shalom Temi mr Sheron Velez, BEBA RN [email or web address] Ashley Boggs RN RN 1 Pam Jordan jw7 Corrections: (The following items were deleted from the chart) 11:22 11:20 Pulse 60bpm; Resp 15bpm; Pulse Ox 99% RA; Temp 98.4F Oral; 81.65 kg; Height 5 ft. vg1 5 in.; BMI: 29.9; Pain 9/10; vg1
[2022-05-05 14:48] VITALS: BP 145/77; TEMP 98.4; O2SAT 99
== END 2022-05-05 14:26 | disposition home or self-care (01) ==
LOC: ER 10:26
DX: L03.213 Periorbital cellulitis (principal); H10.31 Unspecified acute conjunctivitis, right eye; I10 Essential (primary) hypertension; Z88.2 Allergy status to sulfonamides
CPT/HCPCS: 85025; 80048; 36415; 70487; 76377; 99284; Q9967

== ENCOUNTER 2022-05-25 07:10 | Emergency (ER) | payer MEDICARE ==
--- NOTE | 2022-05-25 07:54 | RAD REPORT ---
EXAM DESCRIPTION: CT - Head Brain Wo Cont - 05/25/2022 7:47 am CLINICAL HISTORY: hx of preseptal cellulitis last month COMPARISON: Facial Bones W Con Mpr dated 05/05/2022 TECHNIQUE: Axial 5 mm thick images of the head were obtained without IV contrast. All CT scans are performed using dose optimization technique as appropriate and may include automated exposure control or mA/KV adjustment according to patient size. FINDINGS: No intracranial hemorrhage, mass, edema or shift of mid-line structures. No acute infarcti on changes seen. No abnormal extra-axial fluid collections. Ventricles are normal. No significant atr ophy or chronic ischemic change Mastoid areas and middle ears are fully aerated. No abnormality seen in either external auditory natividad l. No cerebellopontine angle mass. Paranasal sinuses are fully aerated except for trace mucosal thickening along the floor the right max illary sinus. No globe or orbital content abnormality seen. No acute bony findings. IMPRESSION: No intracranial acute or significant finding. Fully aerated mastoid air cells, middle ears and paranasal sinuses.
--- NOTE | 2022-05-25 08:41 | RAD REPORT ---
EXAM DESCRIPTION: US - CP - 05/25/2022 8:21 am CLINICAL HISTORY: HEADACHE COMPARISON: <Comparisons> TECHNIQUE: Real-time sonographic evaluation of bilateral carotid and vertebral systems was performed . Ryan scale and Doppler interrogation were performed with waveform tracing bilaterally. FINDINGS: Normal high resistance waveforms are noted in both external carotid arteries. The common c arotid arteries and internal carotid arteries show normal low resistance waveforms. Bilateral common carotid artery intimal thickening is present. There is also bilateral carotid bulb a nd proximal ICA atherosclerotic plaquing change. Visual inspection does not indicate hemodynamically degree of stenosis. Velocity values and ICA/ CCA ratios also indicate no significant degree of stenos is. Antegrade flow seen in both vertebral arteries. Velocity values and ratios were recorded and are retained in the patient's imaging records. Bilateral thyroid nodules are present. The thyroid gland was more thoroughly evaluated on the [facility] er 29 study. IMPRESSION: Bilateral common carotid, carotid bulb and proximal internal carotid atherosclerotic nereyda nges. No visual evidence for significant stenosis. Velocity values and ratios also indicate no significant degree of stenosis.
--- NOTE | 2022-05-25 09:02 | EDPHYS ---
Physician Documentation [facility] Name: Karol Samuels Age: 71 yrs Sex: Female : 1950 Arrival Date: 05/25/2022 Time: 07:[address] Private MD: ED Physician Carmine Monteiro HPI: 05/25 07:39 This 71 yrs old Black Female presents to ER via Unassigned with complaints of Ear Pain, snw Headache. 07:39 The patient presents with a foreign body sensation, pain, tenderness. The complaints snw affect the right ear. Onset: The symptoms/episode began/occurred acutely. Associated signs and symptoms: The patient has no apparent associated signs or symptoms. Severity of symptoms: At their worst the symptoms were moderate in the emergency department the symptoms are unchanged. The patient has not experienced similar symptoms in the past. pt dx with preseptal cellulitis last month. denies fever. Historical: - Allergies: 07:46 Sulfa (Sulfonamide Antibiotics); ap3 - Home Meds: 07:46 None [Active]; ap3 - PMHx: 07:46 Hypertension; ap3 - Immunization history:: Client reports having NOT received the Covid vaccine. - Social history:: Smoking status: Patient denies any tobacco usage or history of. ROS: 07:37 Constitutional: Negative for fever, chills, and weight loss, Eyes: Negative for injury, snw pain, redness, and discharge, Neck: Negative for injury, pain, and swelling, Cardiovascular: Negative for chest pain, palpitations, and edema, Respiratory: Negative for shortness of breath, cough, wheezing, and pleuritic chest pain, Abdomen/GI: Negative for abdominal pain, nausea, vomiting, diarrhea, and constipation, Back: Negative for injury and pain, : Negative for injury, bleeding, discharge, and swelling, MS/Extremity: Negative for injury and deformity, Skin: Negative for injury, rash, and discoloration. 07:37 ENT: Positive for ear pain. 07:37 Neuro: Positive for headache. Exam: 07:37 Constitutional: This is a well developed, well nourished patient who is awake, alert, snw and in no acute distress. Eyes: Pupils equal round and reactive to light, extra-ocular motions intact. Lids and lashes normal. Conjunctiva and sclera are non-icteric and not injected. Cornea within normal limits. Periorbital areas with no swelling, redness, or edema. ENT: Nares patent. No nasal discharge, no septal abnormalities noted. Tympanic membranes are normal and external auditory canals are clear. Oropharynx with no redness, swelling, or masses, exudates, or evidence of obstruction, uvula midline. Mucous membranes moist. Neck: Trachea midline, no thyromegaly or masses palpated, and no cervical lymphadenopathy. Supple, full range of motion without nuchal rigidity, or vertebral point tenderness. No Meningismus. Chest/axilla: Normal chest wall appearance and motion. Nontender with no deformity. No lesions are appreciated. Cardiovascular: Regular rate and rhythm with a normal S1 and S2. No gallops, murmurs, or rubs. Normal PMI, no JVD. No pulse deficits. Respiratory: Lungs have equal breath sounds bilaterally, clear to auscultation and percussion. No rales, rhonchi or wheezes noted. No increased work of breathing, no retractions or nasal flaring. Abdomen/GI: Soft, non-tender, with normal bowel sounds. No distension or tympany. No guarding or rebound. No evidence of tenderness throughout. Back: No spinal tenderness. No costovertebral tenderness. Full range of motion. Skin: Warm, dry with normal turgor. Normal color with no rashes, no lesions, and no evidence of cellulitis. MS/ Extremity: Pulses equal, no cyanosis. Neurovascular intact. Full, normal range of motion. Neuro: Awake and alert, GCS 15, oriented to person, place, time, and situation. Cranial nerves II-XII grossly intact. Motor strength 5/5 in all extremities. Sensory grossly intact. Cerebellar exam normal. Normal gait. Psych: Awake, alert, with orientation to person, place and time. Behavior, mood, and affect are within normal limits. 07:37 Head/face: Noted is tenderness, that is moderate, of the right ear and right episcopal. Vital Signs: 07:44 BP 148 / 92; Pulse 66; Resp 18; Temp 98.3; Pulse Ox 99% ; Weight 83.91 kg; Height 5 ft. ap3 6 in. (167.64 cm); Pain 8/10; 09:25 BP 147 / 81; Pulse 58; Resp 18; Pulse Ox 100% on R/A; kr3 07:44 Body Mass Index 29.86 (83.91 kg, 167.64 cm) ap3 MDM: 07:35 Patient medically screened. snw 09:03 Data reviewed: vital signs, nurses notes. Data interpreted: Pulse oximetry: on room air snw is 99 %. Interpretation: normal. Counseling: I had a detailed discussion with the patient and/or guardian regarding: the historical points, exam findings, and any diagnostic results supporting the discharge/admit diagnosis, the presence of at least one elevated blood pressure reading (>120/80) during this emergency department visit, radiology results, the need for outpatient follow up, to return to the emergency department if symptoms worsen or persist or if there are any questions or concerns that arise at home. Special discussion: I have referred the patient to see his PCP for further evaluation of high blood pressure. Based on the history and exam findings, there is no indication for further emergent testing or inpatient evaluation. I discussed with the patient/guardian the need to see the neurologist for further evaluation of the symptoms. I discussed with the patient/guardian the need to see the primary care provider for further evaluation of the symptoms. 05/25 07:35 Order name: CT Head Brain wo Cont; Complete Time: 08:09 snw 05/25 07:35 Order name: Carotid Artery Bilateral US; Complete Time: 08:56 snw Administered Medications: 09:12 Drug: Ketorolac 30 mg Route: IM; Site: right deltoid; kr3 09:27 Follow up: Response: No adverse reaction kr3 09:12 Drug: Aspirin Chewable Tablet 324 mg Route: PO; kr3 09:27 Follow up: Response: No adverse reaction kr3 Disposition: 13:28 Co-signature as Attending Physician, Carmine Monteiro MD. rn Disposition Summary: 05/25/22 09:00 Discharge Ordered Location: Home snw Condition: Stable snw Diagnosis - Paresthesia of skin snw - Headache snw Followup: snw - With: Private Physician - When: 2 - 3 days - Reason: Recheck today's complaints, Continuance of care, Re-evaluation by your physician Followup: snw - With: Emergency Department - When: As needed - Reason: Worsening of condition Discharge Instructions: - Discharge Summary Sheet snw - General Headache Without Cause snw - Paresthesia snw - Shingles snw - Rehydration, Elderly snw Forms: - Medication Reconciliation Form snw - Thank You Letter snw - Antibiotic Education snw - Prescription Opioid Use snw Prescriptions: - valacyclovir 1 gram Oral tablet - take 1 tablet by ORAL route 3 times per day for 7 days; 21 tablet; Refills: 0, snw Product Selection Permitted - Prednisone 20 mg Oral Tablet - take 2 tablets by ORAL route once daily for 5 days; 10 tablet; Refills: 0, snw Product Selection Permitted - Pepcid 20 mg Oral Tablet - take 1 tablet by ORAL route once daily; 20 tablet; Refills: 0, Product snw Selection Permitted Signatures: Dispatcher [employer] EDMS Lana Rowe, BOTTOM PAINTER-C BOTTOM PAINTER-Csnw Carmine Monteiro MD MD rn Prokisch, Amanda RN RN ap3 Samantha Espitia RN RN kr3
--- NOTE | 2022-05-25 09:02 | ER ---
Nurse's Notes [facility] Name: Karol Samuels Age: 71 yrs Sex: Female : 1950 Arrival Date: 05/25/2022 Time: 07:[address] Private MD: Diagnosis: Paresthesia of skin;Headache Presentation: 05/25 07:44 Chief complaint: Patient states: she started having pain on her left ear and head last ap3 Sunday05/20/2022. Patient states that the pain comes in waves, and she thought it would get better but it never did and is now in her right ear and right side of her head. Coronavirus screen: At this time, the client does not indicate any symptoms associated with coronavirus-19. Ebola Screen: No symptoms or risks identified at this time. Initial Sepsis Screen: Does the patient meet any 2 criteria? No. Patient's initial sepsis screen is negative. Does the patient have a suspected source of infection? No. Patient's initial sepsis screen is negative. Risk Assessment: Do you want to hurt yourself or someone else? Patient reports no desire to harm self or others. Onset of symptoms was May 20, 2022. 07:44 Method Of Arrival: Ambulatory ap3 07:44 Acuity: SAIRA 3 ap3 Triage Assessment: 07:46 General: Appears uncomfortable, Behavior is calm, cooperative, appropriate for age. ap3 Pain: Complains of pain in right episcopal and right ear. EENT: Reports pain in right episcopal and right ear. Neuro: Level of Consciousness is awake, alert, obeys commands, Oriented to person, place, time, situation, Moves all extremities. Gait is steady, Speech is normal. Historical: - Allergies: 07:46 Sulfa (Sulfonamide Antibiotics); ap3 - Home Meds: 07:46 None [Active]; ap3 - PMHx: 07:46 Hypertension; ap3 - Immunization history:: Client reports having NOT received the Covid vaccine. - Social history:: Smoking status: Patient denies any tobacco usage or history of. Screenin:47 Abuse screen: Denies threats or abuse. Nutritional screening: No deficits noted. ap3 Tuberculosis screening: No symptoms or risk factors identified. Fall Risk None identified. Assessment: 09:25 Reassessment: Patient states symptoms have improved. kr3 Vital Signs: 07:44 BP 148 / 92; Pulse 66; Resp 18; Temp 98.3; Pulse Ox 99% ; Weight 83.91 kg; Height 5 ft. ap3 6 in. (167.64 cm); Pain 8/10; 09:25 BP 147 / 81; Pulse 58; Resp 18; Pulse Ox 100% on R/A; kr3 07:44 Body Mass Index 29.86 (83.91 kg, 167.64 cm) ap3 ED Course: 07:13 Patient arrived in ED. as 07:18 Lana Rowe FNP-C is [facility]. snw 07:18 Carmine Monteiro MD is Attending Physician. snw 07:44 Sheron Velez, BEBA is Primary Nurse. ap3 07:46 Triage completed. ap3 07:47 Arm band placed on right wrist. ap3 07:47 Patient has correct armband on for positive identification. Bed in low position. Call ap3 light in reach. Side rails up X 1. Pulse ox on. NIBP on. Door closed. Noise minimized. 07:49 CT Head Brain wo Cont In Process Unspecified. EDMS 08:23 Carotid Artery Bilateral US In Process Unspecified. EDMS 09:26 No provider procedures requiring assistance completed. Patient did not have IV access kr3 during this emergency room visit. Administered Medications: 09:12 Drug: Ketorolac 30 mg Route: IM; Site: right deltoid; kr3 09:27 Follow up: Response: No adverse reaction kr3 09:12 Drug: Aspirin Chewable Tablet 324 mg Route: PO; kr3 09:27 Follow up: Response: No adverse reaction kr3 Medication: 09:26 VIS not applicable for this client. kr3 Outcome: 09:00 Discharge ordered by . snw 09:26 Discharged to home ambulatory. kr3 09:26 Condition: stable 09:26 Discharge instructions given to patient, Instructed on discharge instructions, follow up and referral plans. medication usage, Demonstrated understanding of instructions, follow-up care, medications, Prescriptions given X 3. 09:28 Patient left the ED. kr3 Signatures: Dispatcher [employer] EDMS Lana Rowe FNP-C INTERNATIONAL GUEST COORDINATOR-Liseth nEriquez Amanda, RN RN ap3 Samantha Espitia RN RN kr3
[2022-05-25] MEDS ORDERED: ASPIRIN 81 MG CHEWABLE TABLET ONE (09:05)
[2022-05-25] MEDS ORDERED: KETOROLAC 30 MG/ML INJ ONE (09:05)
[2022-05-25 10:37] VITALS: TEMP 98.3
[2022-05-25 10:38] VITALS: BP 147/81; O2SAT 100
== END 2022-05-25 09:28 | disposition home or self-care (01) ==
LOC: ER 07:10
DX: R51.9 Headache, unspecified (principal); R20.2 Paresthesia of skin; I10 Essential (primary) hypertension; Z88.2 Allergy status to sulfonamides
CPT/HCPCS: 70450; 93880; 96372; 99284

== ENCOUNTER 2024-09-21 09:21 | Emergency (ER) | payer MEDICARE ==
--- NOTE | 2024-09-21 10:56 | RAD REPORT ---
EXAMINATION: TWO VIEW CHEST XR CLINICAL INDICATION: Female, 74 years old. [facility] Bed Name: 19 TECHNIQUE: 2 view radiographs of the chest were performed. COMPARISON: 04/18/2020 FINDINGS: The lungs are well inflated and clear. No pneumothorax or sizable effusion. The heart is normal in si ze. Mediastinal contours are unremarkable. IMPRESSION: No acute or significant abnormalities.
--- NOTE | 2024-09-21 10:57 | ER ---
Nurse's Notes [facility] Name: Karol Samuels Age: 74 yrs Sex: Female : 1950 Arrival Date: 09/21/2024 Time: 09:21 Bed 19 Private MD: Diagnosis: Contact with and (suspected) exposure to mold (toxic) Presentation: 09/21 09:30 Chief complaint: Patient states: there is mold in my bathroom and every time I go in iw there my face is burning and my lips burn and I have respiratory problems , this morning I went in there and now my lips won't stop burning. Coronavirus screen: At this time, the client does not indicate any symptoms associated with coronavirus-19. Ebola Screen: No symptoms or risks identified at this time. Initial Sepsis Screen: Does the patient meet any 2 criteria? No. Patient's initial sepsis screen is negative. Does the patient have a suspected source of infection? No. Patient's initial sepsis screen is negative. Risk Assessment: Do you want to hurt yourself or someone else? Patient reports no desire to harm self or others. Onset of symptoms was September 21, 2024. 09:30 Method Of Arrival: Ambulatory iw 09:30 Acuity: SAIRA 4 iw Historical: - Allergies: 09:32 Sulfa (Sulfonamide Antibiotics); iw - PMHx: 09:32 Hypertension; iw 09:32 Hypothyroidism; iw - PSHx: 09:32 hysterectomy; tubal ligation; back; iw - Immunization history:: Adult Immunizations not up to date. - Infectious Disease History:: Denies. - Social history:: Smoking status: Patient denies any tobacco usage or history of. Screenin:43 [facility] ED Fall Risk Assessment (Adult) History of falling in the last 3 months, kc6 including since admission No falls in past 3 months (0 pts) Confusion or Disorientation No (0 pts) Intoxicated or Sedated No (0 pts) Impaired Gait No (0 pts) Mobility Assist Device Used No (0 pt) Altered Elimination No (0 pt) Score/Fall Risk Level 0 - 2 = Low Risk Oriented to surroundings, Maintained a safe environment, Educated pt \T\ family on fall prevention, incl call for assistance when getting out of bed. Abuse screen: Denies threats or abuse. Denies injuries from another. Nutritional screening: No deficits noted. Tuberculosis screening: No symptoms or risk factors identified. Assessment: 09:44 General: Appears in no apparent distress. comfortable, well groomed, well developed, kc6 Behavior is calm, cooperative, appropriate for age. Pain: Complains of pain in mouth Quality of pain is described as burning. Neuro: Level of Consciousness is awake, alert, obeys commands, Oriented to person, place, time, situation, Appropriate for age. Cardiovascular: Denies chest pain, Capillary refill < 3 seconds Rhythm is regular. Respiratory: Reports breathing difficulty Airway is patent Trachea midline Respiratory effort is even, unlabored, Respiratory pattern is regular, symmetrical, Breath sounds are clear bilaterally. GI: No signs and/or symptoms were reported involving the gastrointestinal system. : No signs and/or symptoms were reported regarding the genitourinary system. EENT: No signs and/or symptoms were reported regarding the EENT system. Derm: No signs and/or symptoms reported regarding the dermatologic system. Skin is intact, is healthy with good turgor, Skin is pink, warm \T\ dry. Musculoskeletal: No signs and/or symptoms reported regarding the musculoskeletal system. Circulation, motion, and sensation intact. Range of motion: intact in all extremities. 10:55 Reassessment: Patient appears in no apparent distress at this time. No changes from kc6 previously documented assessment. Patient and/or family updated on plan of care and expected duration. Pain level reassessed. Patient is alert, oriented x 3, equal unlabored respirations, skin warm/dry/pink. Vital Signs: 09:30 BP 176 / 79; Pulse 59; Resp 16; Temp 97.9; Pulse Ox 99% on R/A; Weight 83.91 kg; Height iw 5 ft. 7 in. ; 11:03 BP 168 / 70; Pulse 60; Resp 16 S; Pulse Ox 99% on R/A; kc6 09:30 Body Mass Index 28.97 (83.91 kg, 170.18 cm) iw ED Course: 09:28 Patient arrived in ED. al6 09:28 Verona Piña PA-C is PHCP. sb4 09:28 Graham Ruiz MD is Attending Physician. sb4 09:32 Triage completed. iw 09:33 Arm band placed on. iw 09:42 Maddi Khan RN is Primary Nurse. kc6 09:43 Patient has correct armband on for positive identification. Bed in low position. Call kc6 light in reach. Side rails up X 1. Adult w/ patient. Pulse ox on. NIBP on. Door closed. Noise minimized. Lights dimmed. Warm blanket given. Pillow given. Verbal reassurance given. 09:43 Patient maintains SpO2 saturation greater than 95% on room air. kc6 10:45 Chest Pa And Lat (2 Views) XRAY In Process Unspecified. EDMS 10:57 Reynold Mcelroy MD is Referral Physician. sb4 11:03 No provider procedures requiring assistance completed. Patient did not have IV access kc6 during this emergency room visit. Administered Medications: No medications were administered Medication: 11:03 VIS not applicable for this client. kc6 Outcome: 10:57 Discharge ordered by . sb4 11:03 Discharged to home ambulatory, with significant other, kc6 11:03 Condition: good 11:03 Discharge instructions given to patient, significant other, Instructed on discharge instructions, follow up and referral plans. medication usage, Demonstrated understanding of instructions, follow-up care, medications, Prescriptions given X 2, 11:03 Patient left the ED. kc6 Signatures: Dispatcher [employer] EDMS Terrie Robles, RN Maddi Byers RN RN Verona Sullivan, PA-C PA-Celestina Louise
--- NOTE | 2024-09-21 10:57 | EDPHYS ---
Physician Documentation [facility] Name: Karol Samuels Age: 74 yrs Sex: Female : 1950 Arrival Date: 09/21/2024 Time: 09:21 Bed 19 Private MD: ED Physician Graham Ruiz HPI: 09/21 09:44 This 74 yrs old Black Female presents to ER via Ambulatory with complaints of Breathing sb4 Difficulty, lips burning. 09:44 Patient states that she has mold in her bathroom at home. She states that every time sb4 she is in there for an extended period of time, she experiences shortness of breath and the sensation of her lips breathing. 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 She denies any lung problems at a baseline. States that her symptoms have resolved since she has left the area. States that this has been going on for several months now but today she wanted to be checked. Historical: - Allergies: 09:32 Sulfa (Sulfonamide Antibiotics); iw - PMHx: 09:32 Hypertension; iw 09:32 Hypothyroidism; iw - PSHx: 09:32 hysterectomy; tubal ligation; back; iw - Immunization history:: Adult Immunizations not up to date. - Infectious Disease History:: Denies. - Social history:: Smoking status: Patient denies any tobacco usage or history of. ROS: 09:44 Cardiovascular: Negative for chest pain, palpitations, and edema, sb4 09:44 Respiratory: Positive for shortness of breath, 09:44 All other systems are negative, Exam: 09:44 Constitutional: This is a well developed, well nourished patient who is awake, alert, sb4 and in no acute distress. Head/Face: Normocephalic, atraumatic. Eyes: Extra-ocular motions intact. Periorbital areas with no swelling, redness, or edema. ENT: Mucous membranes moist. Cardiovascular: Regular rate and rhythm with a normal S1 and S2. Respiratory: No increased work of breathing, no retractions or nasal flaring. Abdomen/GI: Soft, non-tender, no distension. Skin: Warm, dry with normal turgor. Normal color with no rashes, no lesions, and no evidence of cellulitis. 09:44 ENT: Posterior pharynx: Airway: normal, no evidence of obstruction, patent, 09:44 Respiratory: Breath sounds: are clear throughout, Vital Signs: 09:30 BP 176 / 79; Pulse 59; Resp 16; Temp 97.9; Pulse Ox 99% on R/A; Weight 83.91 kg; Height iw 5 ft. 7 in. ; 11:03 BP 168 / 70; Pulse 60; Resp 16 S; Pulse Ox 99% on R/A; kc6 09:30 Body Mass Index 28.97 (83.91 kg, 170.18 cm) iw MDM: 09:28 Medical Screening Exam initiated sb4 10:57 Data reviewed: vital signs, nurses notes, radiologic studies, and as a result, I will sb4 discharge patient. 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 09/21 09:42 Order name: Chest Pa And Lat (2 Views) XRAY; Complete Time: 10:56 sb4 Administered Medications: No medications were administered Disposition Summary: 09/21/24 10:57 Discharge Ordered Notes: Location: Home sb4 Problem: an ongoing problem sb4 Symptoms: are unchanged sb4 Condition: Stable sb4 Diagnosis - Contact with and (suspected) exposure to mold (toxic) sb4 Followup: sb4 - With: Reynold Mcelroy MD - When: 1 week - Reason: Further diagnostic work-up, Recheck today's complaints, Re-evaluation by your physician Discharge Instructions: - Discharge Summary Sheet sb4 - Allergies, Adult, [id number] sb4 Forms: - Patient Portal Instructions sb4 - Leadership Thank You Letter sb4 Prescriptions: - albuterol sulfate 90 mcg/actuation Inhalation HFA Aerosol Inhaler - inhale 1 inhalation INHALATION route every 4 to 6 hours as needed for shortness sb4 of breath; 1 Applicator; Refills: 0, Product Selection Permitted - Loratadine 10 mg Oral Tablet - take 1 tablet ORAL route once daily; 14 tablet; Refills: 0, Product Selection sb4 Permitted Signatures: Dispatcher [employer] EDMS Travis, Terrie, RN RN iw Brown, Verona, PA-C PA-C sb4
[2024-09-21 11:57] VITALS: TEMP 97.9; O2SAT 99
[2024-09-21 11:58] VITALS: BP 168/70
== END 2024-09-21 11:03 | disposition home or self-care (01) ==
LOC: ER 09:21
DX: R06.02 Shortness of breath (principal); Z77.120 Contact with and (suspected) exposure to mold (toxic)
CPT/HCPCS: 71046; 99283